=== PATIENT | female | born 2000 | race Two or more races ===

== ENCOUNTER 2024-08-02 17:36 | Emergency (ER) | payer SELFPAY ==
[2024-08-02 18:20] VITALS: BP 128/77; PULSE 63; RESP 16; TEMP 36.8; O2SAT 100; BMI 22.8
--- NOTE | 2024-08-02 20:07 | PD.EDWOUND ---
ED Wound/Laceration-RME/HPI General Chief Complaint: Wound/Laceration Stated Complaint: Laceration to left index finger Time Seen by Provider: 08/02/24 19:42 Arrival date/time: 08/02/24 17:36 RME / HPI RME / HPI narrative: 24-year-old hrykv-izdu-oghbwilk female presents to the ED with a complaint of laceration to her left index finger that she received while cutting meat at work. She states she was holding the meat with her left hand and the knife in her right hand when the knife slipped causing a skin avulsion to the left index finger. She denies any numbness or tingling distally. Her last tetanus shot was less than 7-8 years ago. She denies any functional deficit. Related Data Allergies Allergy/AdvReac Type Severity Reaction Status Date / Time No Known Drug Allergies Allergy Verified 08/02/24 17:41 Review of Systems Review of Systems Systems Reviewed: All systems reviewed, normal except as documented Past Medical History Social History SMOKING STATUS: Never smoker ED Exam Narrative Physical exam: Alert and oriented, [id number] 24-year-old female, no acute distress. Lungs are clear, regular rate and rhythm. Left hand reveals an avulsion type wound to her left index finger in the area of the lateral middle phalanx. She has good flexion and extension of the left index finger. Bleeding is controlled. CMS intact distally. Course Course Course Narrative: 24-year-old uarkq-yyhy-sivbaout female presents to the ED with a complaint of laceration to her left index finger that she received while cutting meat at work. She states she was holding the meat with her left hand and the knife in her right hand when the knife slipped causing a skin avulsion to the left index finger. She denies any numbness or tingling distally. Her last tetanus shot was less than 7-8 years ago. She denies any functional deficit. Wound was cleansed, antibiotic ointment applied and a nonadherent dressing. Quality Measures none Vital Signs Vital signs: Vital Signs Temperature 98.3 F 08/02/24 18:20 Pulse Rate 63 08/02/24 18:20 Respiratory Rate 16 08/02/24 18:20 Blood Pressure 128/77 08/02/24 18:20 Pulse Oximetry (%) 100 08/02/24 18:20 Oxygen Delivery Method Room Air 08/02/24 18:20 Procedures -ED Procedure Comment Wound was cleansed, antibiotic ointment applied and a nonadherent dressing. Wound / Laceration MDM Narrative MDM Narrative:: 24-year-old cjxns-ewcj-segmvlei female presents to the ED with a complaint of laceration to her left index finger that she received while cutting meat at work. She states she was holding the meat with her left hand and the knife in her right hand when the knife slipped causing a skin avulsion to the left index finger. She denies any numbness or tingling distally. Her last tetanus shot was less than 7-8 years ago. She denies any functional deficit. Alert and oriented, [id number] 24-year-old female, no acute distress. Lungs are clear, regular rate and rhythm. Left hand reveals an avulsion type wound to her left index finger in the area of the lateral middle phalanx. She has good flexion and extension of the left index finger. Bleeding is controlled. CMS intact distally. Wound was cleansed, antibiotic ointment applied and a nonadherent dressing. Work Comp paperwork completed. DX: Left Index Finger Non-suturable Skin Avulsion Patient was discharged home in stable condition. Patient data External records reviewed:: None Clinical information provided by:: patient Social determinants that could affect healthcare access:: none Patient has the following chronic illnesses:: N/A How is presenting disease/condition affected by chronic disease/condition?: no chronic disease Evaluation data The following diagnostics were reviewed and interpreted by me:: other (specify) (N/A) Lab and/or radiology exams considered but not ordered:: N/A Interpretation Summary: N/A Medications / Prescriptions Medications or Prescriptions considered but not ordered:: N/A Medication administrations:: N/A Consultations Consultation(s) initiated? (list below): No Diagnosis Wound Differential Diagnosis: laceration, abrasion and avulsion of skin Most likely diagnosis given after review of the tests above:: Left index finger skin avulsion Admission Indicated Admission indicated?: not indicated Explain why admission is indicated or not indicated:: Patient is stable for discharge. Admission Request Was there a request for admission?: No Disposition Plan Disposition Plan: Discharge Discharge Attestation Discharge Attestation: The patient and all family members were given an opportunity to ask questions and understood the discharge instructions. Discharge instructions specifically effects, indications for sooner follow up or return to the emergency department, and the expected course of current diagnosis. Patient condition: Stable Discharge Plan Plan Patient Disposition: HOME (Self Care) Discharge Disposition comment: Stable and improved Problem List Clinical Impression: Avulsion of skin Patient/Caregiver Discharge Instructions Education Materials: ED Skin Avulsion Additional Instructions: Keep the wound clean and dry, do not expose it to excessive amounts of moisture. Wash daily and apply a clean dressing. Keep covered while working. Follow-up with your employers Worker's Compensation clinic of choice. Return to the ED for any new or worsening symptoms. Print Language: Estonian Stand Alone Forms: [employer] Award Info., Patient Portal Info Letter MAY/JOANNA Supervising Physician MAY/JOANNA Supervising Physician: Dr Morris
[2024-08-02 20:42] VITALS: BP 116/68; PULSE 70; RESP 18; TEMP 36.7; O2SAT 99
== END 2024-08-02 20:42 | disposition home or self-care (01) ==
PROVIDERS: Emergency Provider Emergency Medicine
DX: S61.211A Laceration without foreign body of left index finger without damage to nail, initial encounter (principal); W45.8XXA Other foreign body or object entering through skin, initial encounter; Y93.G1 Activity, food preparation and clean up; Y92.59 Other trade areas as the place of occurrence of the external cause; Y99.0 Civilian activity done for income or pay
CPT/HCPCS: 99282